=== PATIENT | male | born 1975 | race Hispanic/Latino ===

== ENCOUNTER 2023-10-01 18:14 | Emergency (ER) | payer OTHER, SELFPAY ==
[2023-10-01] MEDS ORDERED: Lidocaine 1% w/Epinephrine 1:100K 20 ML VIAL ONE (18:33)
[2023-10-01] MEDS ORDERED: Boostrix 0.5 ML (Tdap) VIAL (>/=7 yrs of age) ONE (18:40)
[2023-10-01] MEDS ORDERED: Bacitracin 1 PK ONE (19:01)
== END 2023-10-01 19:13 | disposition home or self-care (01) ==
LOC: ERS 18:14
DX: S81.811A Laceration without foreign body, right lower leg, initial encounter (principal); Z23 Encounter for immunization; W26.0XXA Contact with knife, initial encounter
CPT/HCPCS: 12002; 90471; 90715

== ENCOUNTER 2023-10-21 19:21 | Emergency (ER) | payer SELFPAY | END 2023-10-21 20:00 | disposition home or self-care (01) | LOC: ERS 19:21 | DX: S81.811D Laceration without foreign body, right lower leg, subsequent encounter (principal); X58.XXXD Exposure to other specified factors, subsequent encounter ==